=== PATIENT | male | born 1950 | race Caucasian/White ===

== ENCOUNTER 2021-12-11 16:37 | Observation (INO) | payer MEDICARE, OTHER ==
[~2021-12-11] VITALS: Ht 182.9 cm; Wt 74.7 kg
[~2021-12-11 16:37] MED LIST: ASPRIN; BENICAR20 MG PO; HCTZ; MASON NATURAL1200 MG PO; MULTIPLE VITAMI1 CAP PO; NIACIN1000 MG PO; NORVASC2.5 MG PO; PRAVACHOL 20MG20 MG PO; PRAVASTATIN SOD80 MG PO; SUPER EPA 1201200 MG PO; TOPROL XL 50MG50 MG PO; TOPROL XL25 MG PO; VIT C
[2021-12-11 17:12] LABS: BASO % 0.3 % (0.0-2.0); EOS # 0.3 K/mm3 (0.0-0.7); GRAN # 4.4 K/mm3 (1.4-6.5); GRAN % 49.6 % (42.2-75.2); HEMATOCRIT 37.2 % (42.0-52.0); HEMOGLOBIN 13.4 g/dl (13.5-18.0); LYMPH # 3.4 K/mm3 (1.2-3.4); LYMPH % 38.5 % (20.0-51.0); MEAN CELL VOLUME 90 fl (80.0-100.0); MEAN CORPUSCULAR HEMOGLOBIN 32 pg (27-31); MEAN CORPUSCULAR HGB CONC 36 g/dl (33.0-37.0); MEAN PLATELET VOLUME 9.8 fl (7.4-10.4); MONO # 0.8 K/mm3 (0.1-0.6); MONO % 8.4 % (1.7-9.3); PLATELET COUNT 196 K/mm3 (130-400); RED BLOOD COUNT 4.13 M/mm3 (4.20-5.60); REDCELL DISTRIBUTION WIDTH-CV 12.4 % (11.5-14.5)
[2021-12-11 17:39] LABS: ALBUMIN 3.8 gm/dL (3.4-4.8); BILIRUBIN,TOTAL 0.4 mg/dL (0.2-1.2); CALCIUM 9.3 mg/dL (8.4-10.2); CREATININE, serum 0.79 mg/dL (0.72-1.25); POTASSIUM 3.9 mmol/L (3.5-4.5); TOTAL PROTEIN 7.1 gm/dL (6.2-8.1)
[2021-12-11 17:41] LABS: PROTHROMBIN TIME 11.4 SECONDS (9.7-12.8)
[2021-12-11 17:44] LABS: PARTIAL THROMBOPLASTIN TIME 37.4 SECONDS (26.0-37.0)
[2021-12-11] MEDS ORDERED: NORVASC 5MG5 MG/TAB PO (18:22)
[2021-12-11] MEDS ORDERED: LIPITOR 10MG10 MG PO (18:23)
[2021-12-11] MEDS ORDERED: MASON NATURAL S1 CAP PO (18:24)
[2021-12-11] MEDS ORDERED: REVATIO20 MG PO (18:25)
[2021-12-11 19:42] VITALS: BP 109/52; PULSE 77; TEMP 97.9
[2021-12-11 20:21] VITALS: BP 99/51; PULSE 69
[2021-12-11 20:47] VITALS: BP 91/61; PULSE 62
[2021-12-11 23:18] VITALS: BP 101/55; PULSE 71
--- NOTE | 2021-12-11 23:20 | NUR ---
RECEIVED CALL FROM TELEMETRY APPROX 2223 REGARDING PATIENT DEVELOPING BRADYCARDIA AND LONGER PAUSES. BLOOD PRESSURE CHECKED AND NOTED TO BE 81/45 AT THIS TIME. PROVIDER NOTIFIED AND RECEIVED ORDERS TO SHUT OFF CARDIZEM RATES NOTED TO BE IN THE 50S AND 60S AND TO START PATIENT ON FLUIDS. ORDERS CARRIED OUT AND BLOOD PRESSURE RECHECKED APPROX 2315 AND NOTED TO BE 101/55. PATIENT RATES NOTED TO BE RATE CONTROLLED IN 70S AT THIS TIME. WILL CONTINUE TO MONITOR.
--- NOTE | 2021-12-11 23:37 | NUR ---
XA CAME BACK 0.88 HEPARIN PROTOCOL FOLLOWED AND DRIP STOPPED WILL RESUME IN ONE HOUR AND REDRAW XA IN 6 HOURS. WILL CONTINUE TO MONITOR.
[2021-12-12 04:29] VITALS: BP 101/48; PULSE 58; TEMP 98
--- NOTE | 2021-12-12 06:17 | NUR ---
PATIENT RESTED QUIETLY THE REST OF SHIFT. PATIENT CONVERTED TO SINUS ARRYTHMIA PER TELMETRY APPROX 2345 PROVIDER NOTIFIED. PATIENT REMAINED OFF OF CARDIZEM DRIP WITH RATES CONTROLLED. PATIENT BLOOD PRESSURES NOTED TO BE 100S. PATIENT HAD NO COMPLAINTS OF PAIN AND RECEIVED NO PRN MEDICATIONS.
[2021-12-12 06:19] LABS: BASO % 0.4 % (0.0-2.0); EOS # 0.3 K/mm3 (0.0-0.7); EOS % 3.1 % (0.0-4.0); GRAN # 3.5 K/mm3 (1.4-6.5); GRAN % 42.8 % (42.2-75.2); LYMPH # 3.8 K/mm3 (1.2-3.4); LYMPH % 46.7 % (20.0-51.0); MEAN CELL VOLUME 92 fl (80.0-100.0); MEAN CORPUSCULAR HGB CONC 35 g/dl (33.0-37.0); MONO # 0.6 K/mm3 (0.1-0.6); MONO % 6.9 % (1.7-9.3); PLATELET COUNT 170 K/mm3 (130-400); RED BLOOD COUNT 3.45 M/mm3 (4.20-5.60); REDCELL DISTRIBUTION WIDTH-CV 12.7 % (11.5-14.5)
[2021-12-12 06:21] LABS: HEMATOCRIT 31.6 % (42.0-52.0); MEAN CORPUSCULAR HEMOGLOBIN 32 pg (27-31)
[2021-12-12 07:11] VITALS: BP 115/56; PULSE 54; TEMP 98.2
--- NOTE | 2021-12-12 08:30 | NUR ---
HEP XA CAME BACK AT 0.46, PER PROTOCOL IT IS WITHIN GOAL RANGE AND RATE SHOULD BE KEPT THE SAME AND NEXT HEP XA REDRAW SCHEDULED FOR 6 HOURS. RATE ON PUMP STATES IT HAS BEEN RUNNING AT 10.5ML/HR. RATE ON ORDERS STATES IT IS GOING AT 12.5ML/HR. ORDER SET CORRECTED TO STATE IT IS RUNNING AT 10.5ML/HR AND PUMP RESTARTED AT SAME RATE. HEP XA SCHEDULED FOR 1630.
[2021-12-12 08:31] LABS: CALCIUM 8.4 mg/dL (8.4-10.2); CREATININE, serum 0.71 mg/dL (0.72-1.25); POTASSIUM 3.8 mmol/L (3.5-4.5)
--- NOTE | 2021-12-12 10:16 | NUR ---
PT SITTING UP IN RECLINER. MORNING MEDICATION GIVEN. SHIFT ASSESSMENT COMPLETED. PT HAS NO COMPLAINTS AT THIS TIME. IVF AND HEPARIN GTT INFUSING AT THIS TIME. CARDIZEM GTT BEING HELD PER ORDERS. CONTINUING TO MONITOR.
[2021-12-12 12:12] VITALS: BP 121/59; PULSE 61; TEMP 97.7
--- NOTE | 2021-12-12 13:24 | NUR ---
Forensic Engineer rounds: Patient was sitting in recliner eating breakfast. Patient had a visitor. Forensic Engineer vist was declined.
--- NOTE | 2021-12-12 13:54 | NUR ---
SW met with patient to complete intake. Patient states he is from [facility] and lives with his Vicky Pratt [phone]. Patient states that he does not utilize DME, is independent with ADL's and does not utilize HH services. PCP is Candelaria Elizabeth and pharmacy is [facility]. Patient states that he does not have anyone appointed as his DPOA/HC and wanted to review the document before making a decision. DPOA document provided to patient to review. Patient stated he will contact case managment if he wished to proceed with appointing anyone. Patient plans to return to his home upon DC. SW will continue to follow. DC plan: home
[2021-12-12 15:43] VITALS: BP 135/66; PULSE 65; TEMP 98
[2021-12-12 21:11] VITALS: BP 142/77; PULSE 54; TEMP 98.1
[2021-12-12] MEDS ORDERED: ELIQUIS 5MG PO (21:51)
[2021-12-12] MEDS ORDERED: MULTAQ400 MG PO (21:51)
--- NOTE | 2021-12-13 02:13 | NUR ---
THE PATIENT DISCHARGED AT 22:35 AFTER COMPLETE DISCHARGE TEACHING. ALL QUESTIONS AND CONCERNS WERE ADDRESSED PRIOR TO DISCHARGE. THE PTS PIVs WERE REMOVED PRIOR TO DISCHARGE. THE PATIENT DISCHARGED WITH IS PERSONAL BELONGINGS TO INCLUDE HIS GLASSES AND CELL PHONE. THE PT AND SPOUSE DENEID AVC HOLDING ANYTHING THAT BELONGED TO THEM TO INCLUDE MEDICATIONS. THE APPROPRIATE EDUCATION HANDOUTS WERE GIVEN FOR THE NEW MEDICATIONS. TELE WAS TAKEN OFF PRIOR TO DISCHARGE. SIGNED PAPERWORK COMPLETED.
== END 2021-12-12 22:35 | disposition home or self-care (01) ==
LOC: COL.ER 16:37 → MEDICAL 18:22
PROVIDERS: Emergency Medicine; Nurse Practitioner Family; ADMIT Hospitalist
DX: I48.20 Chronic atrial fibrillation, unspecified (principal); I10 Essential (primary) hypertension; I95.9 Hypotension, unspecified; E78.5 Hyperlipidemia, unspecified; D64.9 Anemia, unspecified; Z79.899 Other long term (current) drug therapy; F17.210 Nicotine dependence, cigarettes, uncomplicated; Z79.01 Long term (current) use of anticoagulants; Z98.890 Other specified postprocedural states
CPT/HCPCS: G0378; J1644; J7030

== ENCOUNTER 2023-11-19 12:23 | Emergency (ER) | payer MEDICARE, OTHER ==
[~2023-11-19] VITALS: Ht 180.3 cm; Wt 69.5 kg
[~2023-11-19 12:23] MED LIST changes: +ELIQUIS 5MG PO; +LIPITOR 10MG10 MG PO; +MASON NATURAL S1 CAP PO; +MULTAQ400 MG PO; +NORVASC 5MG5 MG/TAB PO; +REVATIO20 MG PO
[2023-11-19 12:31] VITALS: TEMP 97.6
[2023-11-19 13:12] LABS: BASO # 0.1 K/mm3 (0.0-0.2); BASO % 0.6 % (0.0-2.0); EOS # 0.2 K/mm3 (0.0-0.7); EOS % 1.9 % (0.0-4.0); GRAN # 5.8 K/mm3 (1.4-6.5); GRAN % 55.9 % (42.2-75.2); HEMATOCRIT 42.7 % (42.0-52.0); LYMPH # 3.6 K/mm3 (1.2-3.4); MEAN CELL VOLUME 93 fl (80.0-100.0); MEAN CORPUSCULAR HEMOGLOBIN 33 pg (27-31); MEAN CORPUSCULAR HGB CONC 35 g/dl (33.0-37.0); MEAN PLATELET VOLUME 9.9 fl (7.4-10.4); MONO # 0.7 K/mm3 (0.1-0.6); MONO % 6.4 % (1.7-9.3); PLATELET COUNT 272 K/mm3 (130-400); RED BLOOD COUNT 4.58 M/mm3 (4.20-5.60); REDCELL DISTRIBUTION WIDTH-CV 12.7 % (11.5-14.5)
[2023-11-19 13:35] LABS: ALANINE AMINOTRANSFERASE 16 U/L (0-55); ALBUMIN 4.2 g/dL (3.4-4.8); ALKALINE PHOSPHATASE 91 U/L (40-150); ANION GAP 12 mmol/L (7-16); AST,SGOT 18 U/L (5-34); BILIRUBIN,TOTAL 0.9 mg/dL (0.2-1.2); BLOOD UREA NITROGEN 18 mg/dL (8-26); CHLORIDE 105 mEq/L (98-107); CREATININE, serum 0.82 mg/dL (0.72-1.25); GLUCOSE 104 mg/dL (70-99); SODIUM 139 mEq/L (136-145); TOTAL PROTEIN 7.8 g/dl (6.2-8.1)
[2023-11-19 13:46] LABS: TROPONIN-I < 0.010 ng/mL (0.00-0.033)
[2023-11-19] MEDS ORDERED: NS 500 ML IV ONE (15:15)
[2023-11-19] MEDS ORDERED: Digoxin 0.25 MG/ML 2 ML VIAL IV ONE (16:00)
[2023-11-19 16:51] VITALS: BP 111/77; PULSE 97
== END 2023-11-19 16:51 | disposition home or self-care (01) ==
LOC: COL.ER 12:23
PROVIDERS: Emergency Medicine
DX: R00.2 Palpitations (principal); E86.0 Dehydration; I48.91 Unspecified atrial fibrillation; Z79.01 Long term (current) use of anticoagulants
CPT/HCPCS: J1160; J7040